=== PATIENT | female | born 1985 | race Caucasian/White ===

== ENCOUNTER 2019-03-17 19:09 | Inpatient (IN) | payer BC ==
[~2019-03-17] VITALS: Ht 154.4 cm; Wt 80.5 kg
--- OUTSIDE RECORDS SUMMARY | 2019-03-17 19:11 | XMS REPORT | Clinical Summary ---
Author Author [facility] Organization [facility] Address Unknown Phone Unavailable Care Team Providers Care Quality Liaison Name Role Phone Debra Coleman MD PCP Allergies Comments Active Allergy Reactions Severity Noted Date "Lockjaw and hives" Sulfa (Sulfonamide Other (See 03/10/2019 Antibiotics) Comments) Medications End Date Status Medication Sig Dispensed Refills Start Date 03/15/2019 HYDROcodone-acetaminophen Take 1 tablet 15 tablet 0 (NORCO) 10-325 mg per by mouth 9 tablet every 6 (six) hours as needed for moderate pain for up to 5 days. Max Daily Amount: 4 tablets Active Problems Not on file Encounters Care Team Description Date Type Specialty Surinder Snyder DO Acute cystitis with hematuria (Primary Dx); Drug-seeking behavior 03/10/2019 Emergency Emergency Medicine after 03/16/2018 Social History Date Tobacco Use Types Packs/Day Years Used Current Every Day Smoker Cigarettes 0.5 Alcohol Use Drinks/Week oz/Week Comments Yes socially Sex Assigned at Date Recorded Not on file Industry Job Start Date Occupation Not on file Not on file Not on file Travel End Travel History Travel Start No recent travel history available. Last Filed Vital Signs Time Taken Vital Sign Reading 03/10/2019 7:26 PM CDT Blood Pressure 137/70 03/10/2019 7:26 PM CDT Pulse 70 03/10/2019 7:26 PM CDT Temperature 36.6 C (97.9 F) 03/10/2019 7:26 PM CDT Respiratory Rate 20 03/10/2019 9:55 PM CDT Oxygen Saturation 97% - Inhaled Oxygen - Concentration 03/10/2019 7:27 PM CDT Weight 72.6 kg (160 lb) 03/10/2019 7:27 PM CDT Height 172.7 cm (5' 8") 03/10/2019 7:27 PM CDT Body Mass Index 24.33 Plan of Treatment Health Maintenance Due Date Last Done Comments INFLUENZA VACCINE 05/19/2019 Procedures Comments Procedure Name Priority Date/Time Associated Diagnosis CT ABDOMEN PELVIS W STAT 03/10/2019 CONTRAST 9:15 PM CDT GRAM STAIN STAT 03/10/2019 8:51 PM CDT URINE CULTURE STAT 03/10/2019 8:51 PM CDT URINALYSIS SCREEN AND STAT 03/10/2019 MICROSCOPY, WITH REFLEX 8:27 PM CDT TO CULTURE HCG QUALITATIVE, URINE STAT 03/10/2019 SCREEN 8:27 PM CDT ESTIMATED GFR STAT 03/10/2019 7:49 PM CDT BASIC METABOLIC PANEL STAT 03/10/2019 7:49 PM CDT HC COMPLETE BLD COUNT STAT 03/10/2019 W/AUTO DIFF 7:49 PM CDT after 03/16/2018 Results * CT Abdomen Pelvis W Contrast (03/10/2019 9:15 PM CDT) Specimen Narrative Performed At EXAMINATION:CT ABDOMEN PELVIS W CONTRAST [facility] CLINICAL HISTORY:right flank pain status post stent placement TECHNIQUE: Multiple axial images of the abdomen and pelvis were obtained following intravenous administration of iodinated contrast. Sagittal and coronal computerized reformatted images were also obtained. CT imaging was performed with iterative reconstruction technique and/or automated exposure control to reduce radiation dose. COMPARISON:03/14/2014 IMPRESSION: Mild bibasilar atelectasis/scarring. Patient is status post cholecystectomy. Liver, spleen, pancreas, adrenal glands are normal. A right internal double-J ureteral stent is identified. Bladder is decompressed. Mild wall thickening of bladder is seen, and correlation to exclude cystitis is advised. A 1.2 cm hypodensity in the interpolar region of the right kidney is indeterminate and would be better assessed with CT renal mass protocol or MRI abdomen with and without contrast on nonemergent basis. Left kidney and ureter are normal. Small fluid is seen in the pelvis. No free intraperitoneal air. Arising from right ovary, a 1.9 x 1.3 cm complex cystic structure is seen. This could represent hemorrhagic ovarian cyst and would be better assessed with pelvic ultrasound. Diverticulosis is seen without diverticulitis. The appendix is not seen. No gastrointestinal tract obstruction. No acute osseous abnormalities. Summary: Right internal double-J ureteral stent is identified, without hydronephrosis or hydroureter. A 1.2 cm hypodensity in the interpolar region of right kidney is indeterminate and would be better assessed with CT renal mass protocol or MRI abdomen with and without contrast on nonemergent basis. Bladder is decompressed. Mild wall thickening of the bladder is seen, which could just be secondary to incomplete distention. Correlation to exclude cystitis is advised. A 1.9 x 1.3 cm complex cystic structure arising from right ovary could represent a hemorrhagic ovarian cyst and would be better assessed with pelvic ultrasound. [facility]-[id number] Procedure Note [facility], Radiology Results Incoming - 03/10/2019 9:30 PM CDT EXAMINATION: CT ABDOMEN PELVIS W CONTRAST CLINICAL HISTORY: right flank pain status post stent placement TECHNIQUE: Multiple axial images of the abdomen and pelvis were obtained following intravenous administration of iodinated contrast. Sagittal and coronal computerized reformatted images were also obtained. CT imaging was performed with iterative reconstruction technique and/or automated exposure control to reduce radiation dose. COMPARISON: 03/14/2014 IMPRESSION: Mild bibasilar atelectasis/scarring. Patient is status post cholecystectomy. Liver, spleen, pancreas, adrenal glands are normal. A right internal double-J ureteral stent is identified. Bladder is decompressed. Mild wall thickening of bladder is seen, and correlation to exclude cystitis is advised. A 1.2 cm hypodensity in the interpolar region of the right kidney is indeterminate and would be better assessed with CT renal mass protocol or MRI abdomen with and without contrast on nonemergent basis. Left kidney and ureter are normal. Small fluid is seen in the pelvis. No free intraperitoneal air. Arising from right ovary, a 1.9 x 1.3 cm complex cystic structure is seen. This could represent hemorrhagic ovarian cyst and would be better assessed with pelvic ultrasound. Diverticulosis is seen without diverticulitis. The appendix is not seen. No gastrointestinal tract obstruction. No acute osseous abnormalities. Summary: Right internal double-J ureteral stent is identified, without hydronephrosis or hydroureter. A 1.2 cm hypodensity in the interpolar region of right kidney is indeterminate and would be better assessed with CT renal mass protocol or MRI abdomen with and without contrast on nonemergent basis. Bladder is decompressed. Mild wall thickening of the bladder is seen, which could just be secondary to incomplete distention. Correlation to exclude cystitis is advised. A 1.9 x 1.3 cm complex cystic structure arising from right ovary could represent a hemorrhagic ovarian cyst and would be better assessed with pelvic ultrasound. [facility]-[id number] Performing Organization Address City/[facility] [place] [address] * Gram stain (03/10/2019 8:51 PM CDT) Gram stain No WBC's [facility] result Occasional Gram negative rods Y[facility] Comment: HOSPITAL Specimen Information Specimen Source: Urine Specimen Site: Clean catch Specimen Urine Performing Organization Address [facility] Phone Number [facility] [place] [address] PATHOLOGY AND GENOMIC MEDICINE [address] * Urine culture (03/10/2019 8:51 PM CDT) Pathologist [facility] Urine culture No growth after 24 hours [facility] isolate Comment: [facility] Specimen Information HOSPITAL Specimen Source: Urine Specimen Site: Clean catch Specimen Urine Performing Organization Address [facility] Phone Number [facility] [place] [place] [address] PATHOLOGY AND GENOMIC MEDICINE [address] * Urinalysis screen and microscopy, with reflex to culture (03/10/2019 8:27 PM CDT) Specimen site Clean catch [facility] Color, UA RedComment: Corrected result; [facility] previously reported as Gwendolyn YAZIDISM ST. on 03/10/2019 at 20:51 by [facility] I/AUT Appearance, UA TurbidComment: Corrected [facility] result; previously reported as YAZIDISM ST. Clear on 03/10/2019 at 20:51 [facility] by I/AUT Specific 1.026 1.001 - 1.035 [facility] gravity, UA [facility] pH, UA 5.0 5.0 - 8.5 [facility] Protein, UA 3+ (A) Negative [facility] Glucose, UA Negative Negative [facility] Ketones, UA Negative Negative [facility] Bilirubin, UA Negative Negative [facility] Blood, UA Moderate (A) Negative [facility] Nitrite, UA Positive (A) Negative [facility] Urobilinogen, 4.0 (A) <2.0 [facility] Leukocyte Negative Negative [facility] esterase, UA [facility] Epithelial None seen /HPF [facility] cells, UA [facility] WBC, UA 0-5 0 - 4 /HPF [facility] RBC, UA 0-5 0 - 5 /HPF [facility] Bacteria, UA None seen None seen [facility] Yeast, UA None seen [facility] Yeast with None seen [facility] Specimen Urine Performing Organization Address [facility] Phone Number [address] [place] [address] PATHOLOGY AND GENOMIC MEDICINE [address] * hCG qualitative, urine screen (03/10/2019 8:27 PM CDT) Pathologist [facility] hCG Negative Negative [facility] qualitative, Comment: [facility] urine The manufacturers stated [facility] sensitivity of HcG test for serum is >/=10 mIU/ml and urine is >/=20mIU/ml. Specimen Urine Performing Organization Address [facility] Phone Number [address] [place] [address] PATHOLOGY AND GENOMIC MEDICINE [address] * Estimated GFR (03/10/2019 7:49 PM CDT) Pathologist [facility] Estimated GFR >=90 mL/min/1.73 m2 [facility] Comment: [facility] rpretation G1 >=90 Normal or high G2 60-89Mildly decreased [id number] Mildly to moderately decreased [id number] Moderately to severely decreased G4 15-29Severely decreased G5 <15Kidney failure The eGFR was calculated using the Chronic Kidney Disease Epidemiology Collaboration (CKD-EPI) equation. Interpretation is based on recommendations of the National Kidney Foundation-Kidney Disease Outcomes Quality Initiative (NKF-KDOQI) published in 2014. Specimen Plasma specimen Performing Organization Address City/[facility]/Zipcode Phone Number [facility] [address] [place] [address] PATHOLOGY AND GENOMIC MEDICINE [address] * CBC with platelet and differential (03/10/2019 7:49 PM CDT) WBC 12.45 (H) 4.50 - 11.00 k/uL [facility] RBC 4.85 4.20 - 5.50 m/uL [facility] HGB 14.7 12.0 - 16.0 g/dL [facility] HCT 44.5 37.0 - 47.0 % [facility] MCV 91.8 82.0 - 100.0 fL [facility] MCH 30.3 27.0 - 34.0 pg [facility] MCHC 33.0 31.0 - 37.0 g/dL [facility] RDW - SD 39.8 37.0 - 55.0 fL [facility] MPV 11.4 8.8 - 13.2 fL [facility] Platelet count 273 150 - 400 k/uL [facility] Nucleated RBC 0.00 /100 WBC [facility] Neutrophils 83.4 (H) 39.0 - 69.0 % [facility] Lymphocytes 12.1 (L) 25.0 - 45.0 % [facility] Monocytes 3.9 0.0 - 10.0 % [facility] Eosinophils 0.1 0.0 - 5.0 % [facility] Basophils 0.2 0.0 - 1.0 % [facility] Specimen Blood Performing Organization Address City/[facility]/Zipcode Phone Number [facility] [address] [place] [address] PATHOLOGY AND GENOMIC MEDICINE [address] * Basic metabolic panel (03/10/2019 7:49 PM CDT) Sodium 139 135 - 148 mEq/L [facility] Potassium 4.5 3.5 - 5.0 mEq/L [facility] Chloride 107 98 - 112 mEq/L [facility] CO2 21 (L) 24 - 31 mEq/L [facility] Anion gap 11@ANIO 7 - 15 mEq/L [facility] BUN 8 6 - 20 mg/dL [facility] Creatinine 0.70 0.50 - 0.90 mg/dL [facility] Glucose 123 (H) 65 - 99 mg/dL [facility] Calcium 9.7 8.3 - 10.2 mg/dL [facility] Specimen Plasma specimen Performing Organization Address City/State/Zipcode [place] [address] [place] [address] PATHOLOGY AND GENOMIC MEDICINE [facility] [id number] [place] [address] after 03/16/2018 Insurance Type Payer Benefit Subscriber ID Effective Phone Address Plan / Dates Group PPO BCBS BCBS xxxxxxxxxxxx [id number] CHOICE resent PPO/SOPHIA MATHEW PPO Advance Directives Patient has advance care planning documents on file. For more information, shania galicia contact: [facility] [address] [place] [address]
--- OUTSIDE RECORDS SUMMARY | 2019-03-17 19:12 | XMS REPORT ---
Author Author Manda Downs Organization [employer] Address Unknown Phone Unavailable Care Team Providers Care Orthopedically Impaired Teacher Name Role Phone Manda Downs CP Unavailable Encounters Encounter Location Date Disability paperwork [facility] Jul 23, 2015 Spells Of Passing Out [facility] Aug 02, 2015 Other [facility] Aug 02, 2015 referral [facility] Aug 09, 2015 Update Demographics - Additional Info [facility] Nov 10, 2014 RA Factor in blood test [facility] Nov 27, 2014 CLR F/U [facility] Jul 16, 2015 Test results [facility] Aug 30, 2015 Dr Perkins [facility] Nov 02, 2015 Dr Perkins Appointment [facility] Oct 29, 2015 EEG Sched. [facility] Aug 13, 2015 4 Week Follow Up [facility] Aug 22, 2015 Short Term Disability URGENT [facility] Oct 23, 2015 Deputy General Counsel Disability paperwork to be filled out [facility] Oct 18, 2015 Other [facility] Oct 16, 2015 Deputy General Counsel Disability [facility] Oct 22, 2015 fu/ surgery [facility] Nov 27, 2015 Tremmbling / Heart Racing [facility] Sep 26, 2015 Test results [facility] Jun 03, 2016 hosp fu/ clr [facility] Oct 16, 2015 Panic Attacks [facility] Sep 03, 2015 "Feeling Odd" [facility] Sep 25, 2015 FMLA Packet [facility] Oct 26, 2015 Problems Problem Type Condition ICD-9 Code Onset Dates Condition Status Problem Major depressive disorder, single episode, unspecified F32.9 Active Problem Abnormal finding of blood chemistry, unspecified R79.9 Active Problem Pain in unspecified joint M25.50 Active Problem Other cholelithiasis without obstruction K80.80 Active Problem Infectious gastroenteritis and colitis, unspecified A09 Active Problem Cellulitis, unspecified L03.90 Active Problem Diarrhea, unspecified R19.7 Active Problem Mild intermittent asthma, uncomplicated J45.20 Active Problem Melena K92.1 Active Problem Chills (without fever) R68.83 Active Problem Adjustment disorder with mixed anxiety and depressed mood F43.23 Active Problem Altered mental status, unspecified R41.82 Active Problem Chronic pain syndrome G89.4 Active Problem Encounter for general adult medical examination without abnormal findings Z00.00 Active Problem 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 Patient is a: former smoker, What age did you quit smoking? 29 May 27, 2016 Marital Status: . May 27, 2016 Caffeine intake? normal. Status: Yes, What type: Coffee, Tea, Soft Drinks, Chocolate May 27, 2016 exercise: no. May 27, 2016 Alchohol: no. May 27, 2016 Summary Purpose [employer] Submission
--- OUTSIDE RECORDS SUMMARY | 2019-03-17 19:12 | XMS REPORT ---
Author Author Manda Downs Organization [employer] Address Unknown Phone Unavailable Care Team Providers Care Freight Representative Name Role Phone Manda Downs CP Unavailable Allergies No Known Allergies Problems Problem Type Condition Code Onset Dates Condition Status Problem Encounter for general adult medical examination without abnormal findings Z00.00 Active Problem Abnormal finding of blood chemistry, unspecified R79.9 Active Problem Fall from, out of or through building, not otherwise specified, subsequent encounter W13.9XXD Active Problem Infectious gastroenteritis and colitis, unspecified A09 Active Problem Other cholelithiasis without obstruction K80.80 Active Problem Cellulitis, unspecified L03.90 Active Problem Chills (without fever) R68.83 Active Problem Mild intermittent asthma, uncomplicated J45.20 Active Problem Melena K92.1 Active Problem Diarrhea, unspecified R19.7 Active Problem Chronic pain syndrome G89.4 Active Problem 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
--- OUTSIDE RECORDS SUMMARY | 2019-03-17 19:12 | XMS REPORT | Continuity of Care Document ---
Author Author [facility] Interface Address Unknown Phone Unavailable Problems Problem Status Onset Date Classification Date Reported Comments Source Encounter for general adult medical examination without abnormal findings Active Problem 10/21/2018 [facility] Abnormal finding of blood chemistry, unspecified Active Problem 10/21/2018 [facility] Fall from, out of or through building, not otherwise specified, subsequent encounter Active Problem 10/21/2018 [facility] Infectious gastroenteritis and colitis, unspecified Active Problem 10/21/2018 [facility] Other cholelithiasis without obstruction Active Problem 10/21/2018 [facility] Cellulitis, unspecified Active Problem 10/21/2018 [facility] Chills Active Problem 10/21/2018 [facility] Mild intermittent asthma, uncomplicated Active Problem 10/21/2018 [facility] Melena Active Problem 10/21/2018 [facility] Diarrhea, unspecified Active Problem 10/21/2018 [facility] Chronic pain syndrome Active Problem 10/21/2018 [facility] Early-onset cerebellar ataxia Active Problem 10/21/2018 [facility] Pain in unspecified joint Active Problem 10/21/2018 [facility] Altered mental status, unspecified Active Problem 10/21/2018 [facility] Adjustment disorder with mixed anxiety and depressed mood Active Problem 10/21/2018 [facility] Fibromyalgia Active Problem 10/21/2018 [facility] Major depressive disorder, single episode, unspecified Active Problem 10/21/2018 [facility] Inflammatory polyarthropathy Active Problem 10/21/2018 [facility] Medications Medication Details Route Status Patient Instructions Ordering Provider Order Date Source Lomotil 1 tablet as needed Orally Active 2.5-0.025 MG Orally Four times a day [facility] 07/09/2017 [facility] Cipro 1 tablet Orally Active 500 MG Orally Twice a day [facility] 07/09/2017 [facility] Amoxicillin 1 tablet Orally Active 875 MG Orally twice a day (bid) [facility] 07/09/2017 [facility] Promethazine HCl 1 tablet as needed Orally Active 25 MG Orally every 12 hrs [facility] 07/09/2017 [facility] Ativan 1 tablet as needed Orally No Longer Active 0.5 MG Orally Twice a day [facility] 11/27/2015 [facility] Albuterol Sulfate HFA 2 puffs as needed Inhalation Active 108 (90 Base) MCG/ACT Inhalation every 4 hrs [facility] 08/22/2015 [facility] Albuterol Sulfate HFA 2 puffs as needed Inhalation Active 108 (90 Base) MCG/ACT Inhalation every 4 hrs [facility] 08/22/2015 [facility] Lyrica 1 capsule Orally Active 75 MG Orally Twice a day [facility] 05/18/2015 [facility] Lyrica 1 capsule Orally Active 75 MG Orally Twice a day [facility] 05/18/2015 [facility] [place] 1 tablet as needed Orally Active 10-325 MG Orally three times a day (tid) [facility] DiphenhydrAMINE HCl 1 capsule as needed Orally Active 25 MG Orally four times a day (qid) [facility] Bentyl 1 capsule Orally Active 10 MG Orally Four times a day [facility] Vitamin D3 not defined Orally Active 5000 UNIT Orally daily [facility] Zoloft 2 tablet Orally Active 100 mg Orally Once a day [facility] Abilify 1 tablet Orally Active 10 mg Orally Once a day [facility] Levaquin 1 tablet Orally Active 500 MG Orally Once a day [facility] Melatonin 2 tablets in the evening as needed with food Orally Active 10 mg Orally daily [facility] Citalopram Hydrobromide 2 tablets Orally Active 20 MG Orally Once a day [facility] Zolpidem Tartrate ER 1 tablet at bedtime as needed Orally Active 6.25 MG Orally Once a day [facility] Magnesium 2 tablets with a meal Orally Active 200 MG Orally Once a day [facility] Biotin 1 tablet Orally Active 1000 MCG Orally Once a day [facility] Wellbutrin XL 1 tablet in the morning Orally Active 300 MG Orally Once a day [facility] Trazodone HCl not defined Orally Active 300 MG Orally daily [facility] Gabapentin 1 capsule Orally Active 300 MG Orally daily [facility] Vitamin B Complex not defined Orally Active Orally [facility] Citalopram Hydrobromide 2 tablets Orally Active 20 MG Orally Once a day [facility] Trazodone HCl Unknown Orally Active 100 mg Orally daily [facility] [place] 1 tablet as needed Orally Active 7.5-325 MG Orally three times a day (tid) [facility] Zoloft 2 tablet Orally Active 100 mg Orally Once a day [facility] Magnesium 2 tablets with a meal Orally Active 200 MG Orally Once a day [facility] Biotin 1 tablet Orally Active 1000 MCG Orally Once a day [facility] Gabapentin 1 capsule Orally Active 300 MG Orally daily [facility] Vitamin B Complex Unknown Orally Active Orally [facility] Abilify 1 tablet Orally Active 10 mg Orally Once a day [facility] Vitamin D3 Unknown Orally Active 5000 UNIT Orally daily [facility] Levaquin 1 tablet Orally Active 500 MG Orally Once a day [facility] DiphenhydrAMINE HCl 1 capsule as needed Orally Active 25 MG Orally four times a day (qid) [facility] Zolpidem Tartrate ER 1 tablet at bedtime as needed Orally Active 6.25 MG Orally Once a day [facility] Bentyl 1 capsule Orally Active 10 MG Orally Four times a day [facility] Melatonin 2 tablets in the evening as needed with food Orally Active 10 mg Orally daily [facility] Allergies, Adverse Reactions, Alerts Substance Category Reaction Severity Reaction type Status Date Reported Comments Source Sulfa Adverse Reaction Info Not Available Adverse Reaction Active 07/09/2017 [facility] Immunizations Immunization Date Given Site Status Last Updated Comments Source Results Order Name Results Value Reference Range Date Interpretation Comments Source Vital Signs Vital Sign Value Date Comments Source Weight 195 07/09/2017 [facility] Systolic (mm Hg) 100 07/09/2017 [facility] Respitory Rate 16 07/09/2017 [facility] Heart Rate 74 07/09/2017 [facility] Temperature Oral (F) 98.3 F 07/09/2017 [facility] Diastolic (mm Hg) 60 07/09/2017 [facility] Weight 183 11/27/2015 [facility] Height 67 11/27/2015 [facility] Systolic (mm Hg) 108 11/27/2015 [facility] Respitory Rate 16 11/27/2015 [facility] Heart Rate 96 11/27/2015 [facility] Temperature Oral (F) 98.2 F 11/27/2015 [facility] Diastolic (mm Hg) 60 11/27/2015 [facility] Encounters Location Location Details Encounter Type Encounter Number Reason For Visit Attending Provider ADM Date DC Date Status Source [facility] Update Demographics - Additional Info [id number] 11/10/2014 11/10/2014 [facility] Update Demographics - Additional Info [id number] 11/10/2014 11/10/2014 [facility] Update Demographics - Additional Info [id number] 11/10/2014 11/10/2014 [facility] Update Demographics - Additional Info [id number] 11/10/2014 11/10/2014 [facility] RA Factor in blood test [id number] 11/27/2014 11/27/2014 [facility] RA Factor in blood test [id number] 11/27/2014 11/27/2014 [facility] RA Factor in blood test [id number] 11/27/2014 11/27/2014 [facility] RA Factor in blood test [id number] 11/27/2014 11/27/2014 [facility] CLR F/U [id number] 07/16/2015 07/16/2015 [facility] CLR F/U [id number] 07/16/2015 07/16/2015 [facility] CLR F/U [id number] 07/16/2015 07/16/2015 [facility] CLR F/U [id number] 07/16/2015 07/16/2015 [facility] Disability paperwork [id number] 07/23/2015 07/23/2015 [facility] Disability paperwork [id number] 07/23/2015 07/23/2015 [facility] Disability paperwork [id number] 07/23/2015 07/23/2015 [facility] Disability paperwork [id number] 07/23/2015 07/23/2015 [facility] Spells Of Passing Out [id number] 08/02/2015 08/02/2015 [facility] Spells Of Passing Out [id number] 08/02/2015 08/02/2015 [facility] Spells Of Passing Out [id number] 08/02/2015 08/02/2015 [facility] Spells Of Passing Out [id number] 08/02/2015 08/02/2015 [facility] Other [id number] 08/03/2015 08/03/2015 [facility] Other [id number] 08/03/2015 08/03/2015 [facility] Other [id number] 08/03/2015 08/03/2015 [facility] Other [id number] 08/03/2015 08/03/2015 [facility] referral [id number] 08/09/2015 08/09/2015 [facility] referral [id number] 08/09/2015 08/09/2015 [facility] referral [id number] 08/09/2015 08/09/2015 [facility] referral [id number] 08/09/2015 08/09/2015 [facility] EEG Sched. [id number] 08/13/2015 08/13/2015 [facility] EEG Sched. [id number] 08/13/2015 08/13/2015 [facility] EEG Sched. [id number] 08/13/2015 08/13/2015 [facility] EEG Sched. [id number] 08/13/2015 08/13/2015 [facility] 4 Week Follow Up [id number] 08/22/2015 08/22/2015 [facility] 4 Week Follow Up [id number] 08/22/2015 08/22/2015 [facility] 4 Week Follow Up [id number] 08/22/2015 08/22/2015 [facility] 4 Week Follow Up [id number] 08/22/2015 08/22/2015 [facility] Test results [id number] 08/31/2015 08/31/2015 [facility] Test results [id number] 08/31/2015 08/31/2015 [facility] Test results [id number] 08/31/2015 08/31/2015 [facility] Test results [id number] 08/31/2015 08/31/2015 [facility] Panic Attacks [id number] 09/03/2015 09/03/2015 [facility] Panic Attacks [id number] 09/03/2015 09/03/2015 [facility] Panic Attacks [id number] 09/03/2015 09/03/2015 [facility] Panic Attacks [id number] 09/03/2015 09/03/2015 [facility] "Feeling Odd" [id number] 09/25/2015 09/25/2015 [facility] "Feeling Odd" [id number] 09/25/2015 09/25/2015 [facility] "Feeling Odd" [id number] 09/25/2015 09/25/2015 [facility] "Feeling Odd" [id number] 09/25/2015 09/25/2015 [facility] Tremmbling / Heart Racing [id number] 09/26/2015 09/26/2015 [facility] Tremmbling / Heart [employer] [id number] 09/26/2015 09/26/2015 [facility] Tremmbling / Heart [employer] [id number] 09/26/2015 09/26/2015 [facility] Tremmbling / Heart Racing [id number] 09/26/2015 09/26/2015 [facility] hosp fu/ clr [id number] 10/16/2015 10/16/2015 [facility] fu/ clr [id number] 10/16/2015 10/16/2015 [facility] fu/ clr [id number] 10/16/2015 10/16/2015 [facility] fu/ clr [id number] 10/16/2015 10/16/2015 [facility] Other [id number] 10/17/2015 10/17/2015 [facility] Other [id number] 10/17/2015 10/17/2015 [facility] Other [id number] 10/17/2015 10/17/2015 [facility] Other [id number] 10/17/2015 10/17/2015 [facility] Disability paperwork to be filled out [id number] 10/18/2015 10/18/2015 [facility] Foreign [employer] Student Coordinator Disability paperwork to be filled out [id number] 10/18/2015 10/18/2015 [facility] [employer] Student Coordinator Disability paperwork to be filled out [id number] 10/18/2015 10/18/2015 [facility] Disability paperwork to be filled out [id number] 10/18/2015 10/18/2015 [facility] Disability [id number] 10/22/2015 10/22/2015 [facility] Disability [id number] 10/22/2015 10/22/2015 [facility] Disability [id number] 10/22/2015 10/22/2015 [facility] [employer] Exchange Student Coordinator Disability [id number] 10/22/2015 10/22/2015 [facility] Short Term Disability URGENT [id number] 10/23/2015 10/23/2015 [facility] Short Term Disability URGENT [id number] 10/23/2015 10/23/2015 [facility] Short Term Disability URGENT [id number] 10/23/2015 10/23/2015 [facility] Short Term Disability URGENT [id number] 10/23/2015 10/23/2015 [facility] FMLA Packet [id number] 10/26/2015 10/26/2015 [facility] FML[facility] Packet [id number] 10/26/2015 10/26/2015 [facility] F[facility] Packet [id number] 10/26/2015 10/26/2015 [facility] [employer] Packet [id number] 10/26/2015 10/26/2015 [facility] Appointment [id number] 10/29/2015 10/29/2015 [facility] Appointment [id number] 10/29/2015 10/29/2015 [facility] Appointment [id number] 10/29/2015 10/29/2015 [facility] Appointment [id number] 10/29/2015 10/29/2015 [facility] [id number] 11/02/2015 11/02/2015 [facility] [id number] 11/02/2015 11/02/2015 [facility] [id number] 11/02/2015 11/02/2015 [facility] [id number] 11/02/2015 11/02/2015 [facility] fu/ surgery [id number] 11/27/2015 11/27/2015 [facility] fu/ surgery [id number] 11/27/2015 11/27/2015 [facility] fu/ surgery [id number] 11/27/2015 11/27/2015 [facility] Test results [id number] 06/03/2016 06/03/2016 [facility] Test results [id number] 06/03/2016 06/03/2016 [facility] N/S to 06/10 appt. [id number] 06/10/2016 06/10/2016 [facility] Procedures Procedure Code Date Perfomer Comments Source
--- OUTSIDE RECORDS SUMMARY | 2019-03-17 19:12 | XMS REPORT ---
Author Author Manda Downs Organization [employer] Address Unknown Phone Unavailable Care Team Providers Care Patternmaker Metal Bench Name Role Phone Manda Downs CP Unavailable Allergies, Adverse Reactions, Alerts Substance Reaction Event Type Sulfa Info Not Available Drug Allergy Encounters Encounter Location Date Disability paperwork [facility] Jul 23, 2015 Spells Of Passing Out [facility] Aug 02, 2015 Other [facility] Aug 02, 2015 referral [facility] Aug 09, 2015 Update Demographics - Additional Info [facility] Nov 10, 2014 RA Factor in blood test [facility] Nov 27, 2014 CLR F/U [facility] Jul 16, 2015 Test results [facility] Aug 30, 2015 Dr Perkins [facility] Nov 02, 2015 Dr Perkins Appointment [facility] Oct 29, 2015 EEG Sched. 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 [facility] Oct 18, 2015 Other [facility] Oct 16, 2015 Longterm Disability [facility] Oct 22, 2015 fu/ surgery [facility] Nov 27, 2015 Tremmbling / Heart Racing [facility] Sep 26, 2015 hosp fu/ clr [facility] Oct 16, 2015 Panic Attacks [facility] Sep 03, 2015 "Feeling Odd" [facility] Sep 25, 2015 FMLA Packet [facility] Oct 26, 2015 Problems Problem Type Condition ICD-9 Code Onset Dates Condition Status Problem Inflammatory polyarthropathy M06.4 Active Problem Pain in unspecified joint M25.50 Active Problem Major depressive disorder, single episode, unspecified F32.9 Active Problem Infectious gastroenteritis and colitis, unspecified A09 Active Problem Melena K92.1 Active Problem Other cholelithiasis without obstruction K80.80 Active Problem Mild intermittent asthma, uncomplicated J45.20 Active Problem Abnormal finding of blood chemistry, unspecified R79.9 Active Problem Chills (without fever) R68.83 Active Problem Diarrhea, unspecified R19.7 Active Assessment Fibromyalgia M79.7 Active Problem Adjustment disorder with mixed anxiety and depressed mood F43.23 Active Assessment Adjustment disorder with mixed anxiety and depressed mood F43.23 Active Assessment Chronic pain syndrome G89.4 Active Problem Fall from, out of or through building, not otherwise specified, subsequent encounter W13.9XXD Active Problem Chronic pain syndrome G89.4 Active Problem Altered mental status, unspecified R41.82 Active Problem Encounter for general adult medical examination without abnormal findings Z00.00 Active Problem Early-onset cerebellar ataxia G11.1 Active Problem Fibromyalgia M79.7 Active Medications Medication Code System Code Instructions Start Date End Date Status Dosage Citalopram Hydrobromide [facility] [address]-45 20 MG Orally Once a day Active 2 tablets Trazodone HCl [facility] [address]-25 100 mg Orally daily Active Unknown Langeloth [facility] [address]-20 7.5-325 MG Orally three times a day (tid) Active 1 tablet as needed Zoloft [facility] [address]-96 100 mg Orally Once a day Active 2 tablet Magnesium [facility] 95199-21139 200 MG Orally Once a day Active 2 tablets with a meal Biotin [facility] 30612-[address]127 1000 MCG Orally Once a day Active 1 tablet Lyrica [facility] [address]-89 75 MG Orally Twice a day May 18, 2015 Active 1 capsule Gabapentin [facility] [address]-08 300 MG Orally daily Active 1 capsule Vitamin B Complex [facility] 47418-[address]292 Orally Active Unknown Abilify [facility] [address]-91 10 mg Orally Once a day Active 1 tablet Ativan [facility] [address]-91 0.5 MG Orally Twice a day Nov 27, 2015 Inactive 1 tablet as needed Vitamin D3 [facility] [address]-27 5000 UNIT Orally daily Active Unknown Levaquin [facility] [address]-86 500 MG Orally Once a day Active 1 tablet DiphenhydrAMINE HCl [facility] [address]-57 25 MG Orally four times a day (qid) Active 1 capsule as needed Albuterol Sulfate HFA [facility] [address]-02 108 (90 Base) MCG/ACT Inhalation every 4 hrs Aug 22, 2015 Active 2 puffs as needed Zolpidem Tartrate ER [facility] [address]-51 6.25 MG Orally Once a day Active 1 tablet at bedtime as needed Bentyl [facility] [address]-67 10 MG Orally Four times a day Active 1 capsule Melatonin [facility] 80218-78866 10 mg Orally daily Active 2 tablets in the evening as needed with food Social History Social History Element Qualifiers Date Reported Tobacco Use: . Patient is a: former smoker, What age did you quit smoking? 29 Nov 27, 2015 Marital Status: . Nov 27, 2015 Caffeine intake? normal. Status: Yes, What type: Coffee, Tea, Soft Drinks, Chocolate Nov 27, 2015 exercise: no. Nov 27, 2015 Alchohol: no. Nov 27, 2015 Family history Qualifier Description Comment Date Reported Maternal Grandmother Comment not available Nov 27, 2015 Paternal Grandmother Comment not available Nov 27, 2015 Siblings Comment not available Nov 27, 2015 Maternal Grandfather Comment not available Nov 27, 2015 Children Comment not available Nov 27, 2015 Father alive Comment not available Nov 27, 2015 Paternal Grandfather Comment not available Nov 27, 2015 Mother alive Comment not available Nov 27, 2015 Other: Comment not available Nov 27, 2015 Vital Signs Date/Time: Nov 27, 2015 Weight 183 lbs Height 67 in Blood Pressure Systolic 108 mm Hg Respiratory Rate 16 /min Cardiac Monitoring Heart Rate 96 /min Temperature 98.2 F Blood Pressure Diastolic 60 mm Hg Summary Purpose [employer]Works Submission
--- OUTSIDE RECORDS SUMMARY | 2019-03-17 19:12 | XMS REPORT ---
Author Author Manda Downs Organization [employer] Address Unknown Phone Unavailable Care Team Providers Care Train Crew Member Name Role Phone Manda Downs CP Unavailable [...]
--- OUTSIDE RECORDS SUMMARY | 2019-03-17 19:12 | XMS REPORT ---
Author Author Manda Downs Organization [employer] Address Unknown Phone Unavailable Care Team Providers Care Automotive Welder Name Role Phone Manda Downs CP Unavailable [...]
--- OUTSIDE RECORDS SUMMARY | 2019-03-17 19:12 | XMS REPORT ---
Author Author [facility] Address Unknown Phone Unavailable Care Team Providers Care Gasket Former Name Role Phone Unavailable Unavailable Payers Payer Name Policy Type Policy Number Effective Date Expiration Date Problems This patient has no known problems. Allergies, Adverse Reactions, Alerts Allergy Name Allergy Type Status Severity Reaction(s) Onset Date Inactive Date Treating Clinician Comments Sulfa (Sulfonamide Antibiotics) DA Active U 2018-07-22 00:00:00 No Known Allergies DA Active U 2017-08-05 00:00:00 Medications This patient has no known medications.
--- OUTSIDE RECORDS SUMMARY | 2019-03-17 19:12 | XMS REPORT ---
Author Author Manda Downs Organization [employer] Address Unknown Phone Unavailable Care Team Providers Care Assistant Boiler Operator Name Role Phone Manda Downs CP Unavailable Encounters Encounter Location Date Disability paperwork [facility] Jul 23, 2015 Spells Of Passing Out [facility] Aug 02, 2015 Other [facility] Aug 02, 2015 referral [facility] Aug 09, 2015 Update Demographics - Additional Info [facility] Nov 10, 2014 RA Factor in blood test [facility] Nov 27, 2014 CLR F/U [facility] Jul 16, 2015 Test results [facility] Aug 30, 2015 Dr Perkins [facility] Nov 02, 2015 Dr Perkins Appointment [facility] Oct 29, 2015 EEG Sched. 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 Disability [facility] Oct 22, 2015 Tremmbling / Heart Racing [facility] Sep 26, 2015 hosp fu/ clr [facility] Oct 16, 2015 Panic Attacks [facility] Sep 03, 2015 "Feeling Odd" [facility] Sep 25, 2015 FMLA Packet [facility] Oct 26, 2015 Problems Problem Type [...] R68.83 Active Problem Diarrhea, unspecified R19.7 Active Problem Adjustment disorder with mixed anxiety and depressed mood F43.23 Active Problem Fall from, out of or through building, not otherwise specified, subsequent encounter W13.9XXD Active Problem Chronic pain syndrome G89.4 Active Problem Altered mental status, unspecified R41.82 Active Problem Encounter for general adult medical examination without abnormal findings Z00.00 Active Problem Early-onset cerebellar ataxia G11.1 Active Problem Fibromyalgia M79.7 Active Social History Social History Element Qualifiers Date Reported Tobacco Use: . Patient is a: former smoker, What age did you quit smoking? Oct 18, 2015 Marital Status: . Oct 18, 2015 Caffeine intake? normal. Status: Yes, What type: Coffee, Tea, Soft Drinks, Chocolate Oct 18, 2015 exercise: no. Oct 18, 2015 Alchohol: no. Oct 18, 2015 Summary Purpose [employer]Clinical[employer] Submission
--- OUTSIDE RECORDS SUMMARY | 2019-03-17 19:12 | XMS REPORT ---
Author Author Manda Downs Organization [employer] Address Unknown Phone Unavailable Care Team Providers Care Marriage Performer Name Role Phone Manda Downs CP Unavailable [...] Active Problem Early-onset cerebellar ataxia G11.1 Active Assessment Infectious gastroenteritis and colitis, unspecified A09 Active Problem Pain in unspecified joint M25.50 Active Problem Altered mental status, unspecified R41.82 Active Problem Adjustment disorder with mixed anxiety and depressed mood F43.23 Active Problem Fibromyalgia M79.7 Active Problem Major depressive disorder, single episode, unspecified F32.9 Active Problem Inflammatory polyarthropathy M06.4 Active Medications Medication Code System Code Instructions Start Date End Date Status Dosage Lomotil [facility] 02530273942 2.5-0.025 MG Orally Four times a day Jul 09, 2017 Jul 20, 2017 Active 1 tablet as needed Results No Known Results Summary Purpose eClinicalWorks Submission
--- OUTSIDE RECORDS SUMMARY | 2019-03-17 19:12 | XMS REPORT ---
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 Assessment Mild intermittent asthma, uncomplicated J45.20 Active Assessment Infectious gastroenteritis and colitis, unspecified [...] Instructions Start Date End Date Status Dosage [place] [facility] 26750919712 10-325 MG Orally three times a day (tid) Active 1 tablet as needed Albuterol Sulfate HFA [facility] 45090857424 108 (90 Base) MCG/ACT Inhalation every 4 hrs Aug 22, 2015 Active 2 puffs as needed Cipro [facility] 81413353188 500 MG Orally Twice a day Jul 09, 2017 Jul 19, 2017 Active 1 tablet Amoxicillin [facility] 06428879920 875 MG Orally twice a day (bid) Jul 09, 2017 Inactive 1 tablet DiphenhydrAMINE HCl [facility] 18025355153 25 MG Orally four times a day (qid) Active 1 capsule as needed Bentyl [facility] 07129673141 10 MG Orally Four times a day Active 1 capsule Vitamin D3 ND 49960163246 5000 UNIT Orally daily Active not defined Zoloft [facility] 14391460654 100 mg Orally Once a day Active 2 tablet Abilify [facility] 86767065987 10 mg Orally Once a day Active 1 tablet Levaquin ND 39628560168 500 MG Orally Once a day Active 1 tablet Melatonin [facility] 59687254890 10 mg Orally daily Active 2 tablets in the evening as needed with food Citalopram Hydrobromide [facility] 68990191363 20 MG Orally Once a day Active 2 tablets Zolpidem Tartrate ER ND 04957559273 6.25 MG Orally Once a day Active 1 tablet at bedtime as needed Magnesium [facility] 35824751821 200 MG Orally Once a day Active 2 tablets with a meal Biotin [facility] 81001605848 1000 MCG Orally Once a day Active 1 tablet Wellbutrin XL [facility] 91516227658 300 MG Orally Once a day Active 1 tablet in the morning Trazodone HCl [facility] 83599397406 300 MG Orally daily Active not defined Gabapentin [facility] 85412854628 300 MG Orally daily Active 1 capsule Lyrica [facility] 26511189828 75 MG Orally Twice a day May 18, 2015 Active 1 capsule Lomotil [facility] 84043788267 2.5-0.025 MG Orally Four times a day Jul 09, 2017 Jul 16, 2017 Active 1 tablet as needed Promethazine HCl [facility] 15961975541 25 MG Orally every 12 hrs Jul 09, 2017 Jul 19, 2017 Active 1 tablet as needed Vitamin B Complex [facility] 43384523707 Orally Active not defined Vital Signs Date/Time: Jul 09, 2017 BMI 30.54 Index Weight 195 lbs Blood Pressure Systolic 100 mm Hg Respiratory Rate 16 /min Cardiac Monitoring Heart Rate 74 /min Temperature 98.3 F Blood Pressure Diastolic 60 mm Hg Results No Known Results Summary Purpose [employer]ClinicalWorks Submission
--- OUTSIDE RECORDS SUMMARY | 2019-03-17 19:12 | XMS REPORT ---
Author Author Manda Downs Organization [employer] Address Unknown Phone Unavailable Care Team Providers Care Cancer Registrar Name Role Phone Manda Downs CP Unavailable Encounters Encounter Location Date Disability paperwork [facility] Jul 23, 2015 Spells Of Passing Out [facility] Aug 02, 2015 Other [facility] Aug 02, 2015 referral [facility] Aug 09, 2015 Update Demographics - Additional Info [facility] Nov 10, 2014 RA Factor in blood test [facility] Nov 27, 2014 CLR F/U [facility] Jul 16, 2015 Test results [facility] Aug 30, 2015 Dr Perkins [facility] Nov 02, 2015 Dr Perkins Appointment [facility] Oct 29, 2015 EEG Sched. 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 [facility] Jun 10, 2016 Panic Attacks [facility] Sep 03, 2015 "Feeling Odd" [facility] Sep 25, 2015 FMLA Packet [facility] Oct 26, 2015 Problems Problem Type [...] smoker, What age did you quit smoking? May 27, 2016 Marital Status: . May 27, 2016 Caffeine intake? normal. Status: Yes, What type: Coffee, Tea, Soft Drinks, Chocolate May 27, 2016 exercise: no. May 27, 2016 Alchohol: no. May 27, 2016 Summary Purpose eClinicalWorks Submission
--- OUTSIDE RECORDS SUMMARY | 2019-03-17 19:12 | XMS REPORT ---
Author Author Manda Downs Organization [employer] Address Unknown Phone Unavailable Care Team Providers Care Mri Specialist Name Role Phone Manda Downs CP Unavailable [...]
[2019-03-17] MEDS ORDERED: ONDANSETRON HCL INJ 2MG/ML 2ML 2 MG/ML VIAL IV ONE (20:02)
[2019-03-17] MEDS ORDERED: HYDROMORPHONE 1MG/1ML INJ IV STA (20:02)
[2019-03-17] MEDS ORDERED: SODIUM CHLORIDE 0.9% 1000ML 1,000 ML IV STA (20:02)
[2019-03-17] MEDS ORDERED: MEROPENEM 1GRAM 1 GM in SODIUM CHLORIDE 0.9% 100 ML 100 ML IV STA (20:02)
[2019-03-17] MEDS ORDERED: MEROPENEM 1GM 100 ML IV ONE ×2 (20:15→22:30)
[2019-03-17] MEDS ORDERED: HYDROMORPHONE 2MG/ML 2 MG/ML ML IV ONE (20:15)
[2019-03-17 20:51] LABS: BASOPHILS # (AUTO) 0.1 (0.0-0.1); BASOPHILS % 0.5 % (0.0-1.0); EOSINOPHILS # (AUTO) 0.5 (0.0-0.4); EOSINOPHILS % 3.6 % (0.0-6.0); HEMATOCRIT 48.4 % (34.2-44.1); HEMOGLOBIN 16.6 g/dL (12.0-16.0); LYMPHOCYTES # (AUTO) 5.3 (1.0-3.2); LYMPHOCYTES % 37.9 % (18.0-39.1); MEAN CORPUSCULAR HEMOGLOBIN 30.9 pg (28-32); MEAN CORPUSCULAR HGB CONC 34.3 g/dL (31-35); MONOCYTES # (AUTO) 0.9 (0.2-0.8); MONOCYTES % 6.2 % (4.4-11.3); NEUTROPHILS # (AUTO) 7.2 (2.1-6.9); NEUTROPHILS % 51.4 % (38.7-80.0); PLATELET COUNT 261 x10e3/uL (140-360); RED BLOOD COUNT 5.38 x10e6/uL (3.6-5.1); RED CELL DISTRIBUTION WIDTH 12.4 % (11.7-14.4)
[2019-03-17 20:53] LABS: BILIRUBIN,URINE NEGATIVE (NEGATIVE); CLARITY,URINE SL CLOUDY (CLEAR); COLOR,URINE YELLOW (YELLOW); KETONES,URINE NEGATIVE (NEGATIVE); LEUKOCYTE ESTERASE ,URINE TRACE (NEGATIVE); NITRITE,URINE NEGATIVE (NEGATIVE); PROTEIN,URINE DIPSTICK 1+ (NEGATIVE); URINE UROBILINOGEN 0.2 mg/dL (0.2 - 1)
[2019-03-17 21:06] LABS: BACTERIA,URINE MANY /HPF; EPITHELIAL CELLS,URINE MODERATE /LPF; RBC,URINE 21-50 /HPF (0-5)
[2019-03-17 21:07] LABS: AMORPHOUS SEDIMENT,URINE MODERATE (FEW)
[2019-03-17 21:09] LABS: ANION GAP 14.6 mmol/L (8-16); BLOOD UREA NITROGEN 11 mg/dL (7-26); BUN/CREATININE RATIO 14 (6-25); CALCIUM 10.8 mg/dL (8.4-10.2); CARBON DIOXIDE 21 mmol/L (22-29); CHLORIDE 102 mmol/L (98-107); CREATININE, SERUM 0.77 mg/dL (0.57-1.11); EST GLOMERULAR FILTRATION RATE > 60 ML/MIN (60-); GLUCOSE 73 mg/dL (74-118); POTASSIUM 4.6 mmol/L (3.5-5.1); SODIUM 133 mmol/L (136-145)
--- NOTE | 2019-03-17 21:27 | Diagnostic Imaging Report ---
Abdomen/KUB INDICATION: Stent placed one week ago, right-sided pain ^EVALUATE STENT ^[id number] ^2027 ^Y COMPARISON: None. FINDINGS: Medical Devices: Right ureteral stent has formed loops proximally and distally. Proximal loop is at the medial aspect of the right renal shadow. No calculus along the course of the stent. Cholecystectomy clips in the right upper quadrant. Bowel: Unremarkable bowel gas pattern. No dilated bowel loops. Moderate amount of stool in the right colon and rectum. Free air: None Calcifications: None over the renal shadows or along the expected course of the ureters. Organomegaly: None Bones: Unremarkable IMPRESSION: Right ureteral stent appears to be in appropriate position. No evidence of renal or ureteral calculus. Unremarkable bowel gas pattern. Moderate burden of stool in the colon as described above. Signed by: Dr. Amalia Medrano MD on 03/17/2019 9:24 PM
[2019-03-17] MEDS ORDERED: KETOROLAC TROMETHAMINE 30 MG/ML VIAL IV ONE (21:31)
[2019-03-17] MEDS ORDERED: HYDROMORPHONE 1MG/1ML INJ IV PRN (22:15)
[2019-03-17] MEDS ORDERED: ONDANSETRON HCL INJ 2MG/ML 2ML 2 MG/ML VIAL IV PRN (22:15)
--- OUTSIDE RECORDS SUMMARY | 2019-03-17 22:31 | XMS REPORT | Clinical Summary ---
Author Author [facility] Organization [facility] Address Unknown Phone Unavailable Care Team Providers Care Director Of Vital Statistics Name Role Phone Debra Coleman MD PCP [...] would be better assessed with pelvic ultrasound. [id number] Procedure Note [facility], Radiology Results Incoming - 03/10/2019 9:30 PM [...] would be better assessed with pelvic ultrasound. [id number] Performing Organization Address [facility] [place] [address] * Gram stain (03/10/2019 8:51 PM CDT) Gram stain No WBC's [facility] result Occasional Gram negative rods [facility] Comment: HOSPITAL Specimen Information Specimen Source: Urine Specimen Site: Clean catch Specimen Urine Performing Organization Address [facility] Phone Number [facility] [address] PATHOLOGY AND GENOMIC MEDICINE [address] * Urine culture (03/10/2019 8:51 PM CDT) Pathologist [facility] Urine culture No growth after 24 hours [facility] isolate Comment: [facility] Specimen Information HOSPITAL Specimen Source: Urine Specimen Site: Clean catch Specimen Urine Performing Organization Address [facility] Phone Number [facility] [address] PATHOLOGY AND GENOMIC MEDICINE [address] * Urinalysis screen and microscopy, with reflex to culture (03/10/2019 8:27 PM CDT) Specimen site Clean catch [facility] Color, UA RedComment: Corrected result; [facility] previously reported as Gwendolyn HOAHAOISM ST. on 03/10/2019 at 20:51 by [facility] I/AUT Appearance, UA TurbidComment: Corrected [facility] result; previously reported as HOAHAOISM ST. Clear on 03/10/2019 at 20:51 [facility] by I/AUT Specific 1.026 1.001 - 1.035 [facility] gravity, UA [facility] pH, UA 5.0 5.0 - 8.5 [facility] Protein, UA 3+ (A) Negative [facility] Glucose, UA Negative Negative [facility] Ketones, UA Negative Negative [facility] Bilirubin, UA Negative Negative [facility] Blood, UA Moderate (A) Negative [facility] Nitrite, UA Positive (A) Negative [facility] Urobilinogen, 4.0 (A) <2.0 [facility] Leukocyte Negative Negative [facility] esterase, UA [facility] Epithelial None seen /HPF [facility] cells, UA [facility] WBC, UA 0-5 0 - 4 /HPF [facility] RBC, UA 0-5 0 - 5 /HPF [facility] Bacteria, UA None seen None seen [facility] Yeast, UA None seen [facility] Yeast with None seen [facility] Specimen Urine Performing Organization Address [facility] Phone Number [address] [place] [address] PATHOLOGY AND GENOMIC MEDICINE [address] * hCG qualitative, urine screen (03/10/2019 8:27 PM CDT) Pathologist [facility] hCG Negative Negative [facility] qualitative, Comment: [facility] urine The manufacturers stated [facility] sensitivity of HcG test for serum is >/=10 mIU/ml and urine is >/=20mIU/ml. Specimen Urine Performing Organization Address [facility] Phone Number [address] [place] [address] PATHOLOGY AND GENOMIC MEDICINE [address] * Estimated GFR (03/10/2019 7:49 PM CDT) Pathologist [facility] Estimated GFR >=90 mL/min/1.73 m2 [facility] Comment: [facility] rpretation G1 >=90 Normal or high G2 60-89Mildly decreased K0q45-90 Mildly to moderately decreased B2y36-16 Moderately to severely decreased G4 15-29Severely decreased G5 <15Kidney failure The eGFR was calculated using the Chronic Kidney Disease Epidemiology Collaboration (CKD-EPI) equation. Interpretation is based on recommendations of the National Kidney Foundation-Kidney Disease Outcomes Quality Initiative (NKF-KDOQI) published in 2014. Specimen Plasma specimen Performing Organization Address City/[facility]/Zipcode Phone Number [facility] [address] [place] [address] PATHOLOGY AND GENOMIC MEDICINE [address] * CBC with platelet and differential (03/10/2019 7:49 PM CDT) WBC 12.45 (H) 4.50 - 11.00 k/uL [facility] RBC 4.85 4.20 - 5.50 m/uL [facility] HGB 14.7 12.0 - 16.0 g/dL [facility] HCT 44.5 37.0 - 47.0 % [facility] MCV 91.8 82.0 - 100.0 fL [facility] MCH 30.3 27.0 - 34.0 pg [facility] MCHC 33.0 31.0 - 37.0 g/dL [facility] RDW - SD 39.8 37.0 - 55.0 fL [facility] MPV 11.4 8.8 - 13.2 fL [facility] Platelet count 273 150 - 400 k/uL [facility] Nucleated RBC 0.00 /100 WBC [facility] Neutrophils 83.4 (H) 39.0 - 69.0 % [facility] Lymphocytes 12.1 (L) 25.0 - 45.0 % [facility] Monocytes 3.9 0.0 - 10.0 % [facility] Eosinophils 0.1 0.0 - 5.0 % [facility] Basophils 0.2 0.0 - 1.0 % [facility] Specimen Blood Performing Organization Address City/[facility]/Zipcode Phone Number [facility] [address] [place] [address] PATHOLOGY AND GENOMIC MEDICINE [address] * Basic metabolic panel (03/10/2019 7:49 PM CDT) Sodium 139 135 - 148 mEq/L [facility] Potassium 4.5 3.5 - 5.0 mEq/L [facility] Chloride 107 98 - 112 mEq/L [facility] CO2 21 (L) 24 - 31 mEq/L [facility] Anion gap 11@ANIO 7 - 15 mEq/L [facility] BUN 8 6 - 20 mg/dL [facility] Creatinine 0.70 0.50 - 0.90 mg/dL [facility] Glucose 123 (H) 65 - 99 mg/dL [facility] Calcium 9.7 8.3 - 10.2 mg/dL [facility] Specimen Plasma specimen Performing Organization Address City/State/Zipcode [place] [address] [place] [address] PATHOLOGY AND GENOMIC MEDICINE [facility] [id number] [place] [address] after 03/16/2018 Insurance Type Payer Benefit Subscriber ID Effective Phone Address Plan / Dates Group PPO BCBS BCBS xxxxxxxxxxxx [id number] CHOICE resent PPO/SOPHIA MATHEW PPO Advance Directives Patient has advance care planning documents on file. For more information, shania galicia contact: [facility] [address] [place] [address]
[2019-03-17] MEDS: SODIUM CHLORIDE 0.9% 1000ML 1,000 ML IV SCH (22:38)
[2019-03-17 22:50] VITALS: BP 122/83
[2019-03-17 23:15] VITALS: BP 122/83
--- NOTE | 2019-03-17 23:20 | NUR ---
Patient received via wheel chair from ER accompanied by . AAO x 4. Admission history and Initial physical assessment conducted. Patient had no complaints of pain, nausea or discomfort. Patient oriented to room, call light and plan of care. IVF infusing at 125 cc /hr. Fall precautions implemented. Patient instructed to call for assistance when needed. Call light within reach.
[2019-03-17 23:30] VITALS: BP 122/83
[2019-03-18] VITALS (8 sets, daily range): BP systolic 86–114; BP diastolic 54–75
[2019-03-18] MEDS: HYDROMORPHONE 2MG/ML 2 MG/ML ML IV PRN ×5 (00:21→19:59)
[2019-03-18] MEDS: ACETAMINOPHEN 325 MG TAB PO PRN (05:00)
[2019-03-18 05:06] LABS: BASOPHILS # (AUTO) 0.1 (0.0-0.1); BASOPHILS % 0.6 % (0.0-1.0); EOSINOPHILS # (AUTO) 0.5 (0.0-0.4); EOSINOPHILS % 5.4 % (0.0-6.0); HEMOGLOBIN 13.2 g/dL (12.0-16.0); LYMPHOCYTES # (AUTO) 3.8 (1.0-3.2); LYMPHOCYTES % 45.2 % (18.0-39.1); MEAN CORPUSCULAR HEMOGLOBIN 30.4 pg (28-32); MEAN CORPUSCULAR VOLUME 92.2 fL (81-99); MONOCYTES # (AUTO) 0.6 (0.2-0.8); MONOCYTES % 6.8 % (4.4-11.3); NEUTROPHILS # (AUTO) 3.5 (2.1-6.9); NEUTROPHILS % 41.8 % (38.7-80.0); PLATELET COUNT 204 x10e3/uL (140-360); RED BLOOD COUNT 4.34 x10e6/uL (3.6-5.1); RED CELL DISTRIBUTION WIDTH 12.3 % (11.7-14.4)
[2019-03-18 05:30] LABS: ANION GAP 9.4 mmol/L (8-16); BLOOD UREA NITROGEN 14 mg/dL (7-26); BUN/CREATININE RATIO 18 (6-25); CALCIUM 8.5 mg/dL (8.4-10.2); CARBON DIOXIDE 23 mmol/L (22-29); CHLORIDE 108 mmol/L (98-107); CREATININE, SERUM 0.76 mg/dL (0.57-1.11); EST GLOMERULAR FILTRATION RATE > 60 ML/MIN (60-); GLUCOSE 98 mg/dL (74-118); POTASSIUM 3.4 mmol/L (3.5-5.1); SODIUM 137 mmol/L (136-145)
[2019-03-18] MEDS ORDERED: MEROPENEM 1GRAM 1 GM in SODIUM CHLORIDE 0.9% 100 ML 100 ML IV SCH (06:00)
[2019-03-18] MEDS: MEROPENEM 1GM 100 ML IV SCH ×3 (06:00→21:27)
[2019-03-18] MEDS: SODIUM CHLORIDE 0.9% 1000ML 1,000 ML IV SCH ×3 (06:13→22:13)
--- NOTE | 2019-03-18 07:00 | NUR ---
Patient resting comfortably. Walking rounds done. Report given to oncoming nurse.
--- NOTE | 2019-03-18 07:30 | NUR ---
Received patient AAOx3, patient on room air, no s/s of distress. at bedside. Fluids running at 125 ml/hr. IV is intact, clean, and dry. Side rails up x2, bed in lowest position, and call cárdenas is within reach.
[2019-03-18] MEDS ORDERED: DIPHENHYDRAMINE HCL 25 MG CAP PO PRN (08:00)
--- NOTE | 2019-03-18 09:40 | NUR ---
Patient went down for xray of the abdomen.
--- NOTE | 2019-03-18 10:10 | NUR ---
Patient returned from abdominal x-ray.
--- NOTE | 2019-03-18 10:45 | Diagnostic Imaging Report ---
Exam: Abdominal film Clinical History: Stent Comparison: None. DISCUSSION: Right internal ureteral stent is noted with the proximal locking loop projecting over the right renal pelvis. The distal locking loop projects over the urinary bladder to the right of midline. No calcifications are identified projecting along the course of the stent. Bowel gas pattern is nonobstructive. Right upper quadrant surgical clips likely related to prior cholecystectomy. Regional skeletal structures are intact. IMPRESSION: Appropriately positioned right internal ureteral stent without plain film evidence of urolithiasis. Signed by: Dr. Ayush Garcia M.D. on 03/18/2019 10:42 AM
--- NOTE | 2019-03-18 11:45 | NUR ---
Re-checked blood pressure due to it being 99/61. Second time BP is 102/68 and heart rate of 75. Will con't to monitor patient's blood pressure.
[2019-03-18] MEDS ORDERED: SODIUM CHLORIDE 0.9% 1000ML 1,000 ML ONE (15:29)
--- NOTE | 2019-03-18 15:30 | NUR ---
Patient requested pain medication IV. Checked BP. BP was 110/66 and HR of 64. Will con't to monitor patient BP.
[2019-03-18] MEDS: TEMAZEPAM 15 MG CAP PO PRN (21:07)
[2019-03-19] VITALS (7 sets, daily range): BP systolic 98–119; BP diastolic 54–76
[2019-03-19] MEDS: HYDROMORPHONE 2MG/ML 2 MG/ML ML IV PRN ×8 (01:00→22:28)
[2019-03-19] MEDS: MEROPENEM 1GM 100 ML IV SCH ×3 (05:40→21:49)
[2019-03-19] MEDS: SODIUM CHLORIDE 0.9% 1000ML 1,000 ML IV SCH ×2 (06:13→14:13)
--- NOTE | 2019-03-19 07:30 | NUR ---
Received patient AAOx3, at bedside, patient on room air, no s/s of distress, IV to right hand 20 gauge dry and intact, and fluids running. Side rails up x2, call cárdenas within reach, and bed in lowest position.
--- NOTE | 2019-03-19 12:10 | NUR ---
Patient has vomiting episode. Administered zofran PO. Will con't to monitor.
[2019-03-19] MEDS: ONDANSETRON HCL 4 MG ORAL DISINTEGRATING TAB PO PRN ×3 (12:16→22:29)
[2019-03-19] MEDS: ACETAMINOPHEN 325 MG TAB PO PRN (16:59)
--- NOTE | 2019-03-19 18:16 | NUR ---
Patient is laying in bed with moderate pain to head and right flank. No s/s of distress. at bedside Side rails up x2, bed in lowest position, and call cárdenas within reach.
--- NOTE | 2019-03-19 18:51 | NUR ---
paged dr. reyes regarding patient vomiting twice. waiting for call back.
--- NOTE | 2019-03-19 20:00 | NUR ---
Received change of shift report from AM nurse. Walking rounds completed.
[2019-03-19] MEDS: PROMETHAZINE 25MG/ NS 50ML (IV) IV PRN (21:00)
--- NOTE | 2019-03-19 22:00 | NUR ---
Patient continue to c/o nausea and vomiting. Paged MD for new orders. Received orders and meds given as ordered. Continue monitor.
[2019-03-19] MEDS: TEMAZEPAM 15 MG CAP PO PRN (23:42)
[2019-03-20] VITALS (9 sets, daily range): BP systolic 96–106; BP diastolic 59–70
--- NOTE | 2019-03-20 00:24 | NUR ---
Patient requested pain med every 2 hours for abdominal pain. Meds given as ordered by .
[2019-03-20] MEDS: HYDROMORPHONE 2MG/ML 2 MG/ML ML IV PRN ×9 (00:32→22:17)
[2019-03-20] MEDS: PROMETHAZINE 25MG/ NS 50ML (IV) IV PRN ×2 (03:14→11:37)
--- NOTE | 2019-03-20 03:36 | NUR ---
Patient c/o vaginal area rawness. Cream given and will f/u with .
[2019-03-20] MEDS: SODIUM CHLORIDE 0.9% 1000ML 1,000 ML IV SCH ×4 (04:00→22:57)
[2019-03-20] MEDS: MEROPENEM 1GM 100 ML IV SCH ×3 (05:41→21:54)
--- NOTE | 2019-03-20 06:31 | NUR ---
Patient resting quitly at this time. Requested pain meds.
[2019-03-20] MEDS: FLUCONAZOLE 200 MG/100 ML 100 ML IV SCH (15:45)
[2019-03-20] MEDS: ACETAMINOPHEN/CODEINE 300MG - 30MG TAB PO PRN (16:25)
--- NOTE | 2019-03-20 20:50 | NUR ---
Report called to med/surg 1 for room 110. Patient A&Ox3, stable and no issues or concerns at this time.
--- NOTE | 2019-03-20 20:55 | NUR ---
Report received from rebecca rodriguez.
--- NOTE | 2019-03-20 21:05 | NUR ---
Received the pt from room # 201 to room #110.
--- NOTE | 2019-03-20 21:07 | NUR ---
Patient in room 110. Remains A&Ox3. Visitor at bedside. All personal belonging with patient. No issue or concerns, call light within reach. Nurse notified that patient arrived.
--- NOTE | 2019-03-20 22:35 | NUR ---
Assessment done.no resp.distress.R.flank pain voice.medicated with dilaudid.family member at bed side.oriented to the unit.phone and call light within reach.instructed to call for assistance as needed.
[2019-03-20] MEDS: TEMAZEPAM 15 MG CAP PO PRN (23:02)
[2019-03-21] VITALS (7 sets, daily range): BP systolic 97–106; BP diastolic 54–65
[2019-03-21] MEDS: PROMETHAZINE 25MG/ NS 50ML (IV) IV PRN (01:07)
[2019-03-21] MEDS: HYDROMORPHONE 2MG/ML 2 MG/ML ML IV PRN ×10 (01:11→22:34)
--- NOTE | 2019-03-21 01:20 | NUR ---
Nauseated.Medicated with [id number] mg iv.
--- NOTE | 2019-03-21 02:04 | NUR ---
Resting well in the bed.stable condition.
[2019-03-21] MEDS: MEROPENEM 1GM 100 ML IV SCH ×3 (05:28→22:34)
[2019-03-21] MEDS: SODIUM CHLORIDE 0.9% 1000ML 1,000 ML IV SCH ×3 (05:38→22:34)
[2019-03-21 06:09] LABS: BASOPHILS # (AUTO) 0.1 (0.0-0.1); BASOPHILS % 0.6 % (0.0-1.0); EOSINOPHILS # (AUTO) 0.4 (0.0-0.4); HEMATOCRIT 38.8 % (34.2-44.1); HEMOGLOBIN 12.9 g/dL (12.0-16.0); LYMPHOCYTES % 33.6 % (18.0-39.1); MEAN CORPUSCULAR HEMOGLOBIN 30.7 pg (28-32); MEAN CORPUSCULAR HGB CONC 33.2 g/dL (31-35); MEAN CORPUSCULAR VOLUME 92.4 fL (81-99); MONOCYTES # (AUTO) 0.5 (0.2-0.8); MONOCYTES % 5.8 % (4.4-11.3); NEUTROPHILS % 55.7 % (38.7-80.0); PLATELET COUNT 185 x10e3/uL (140-360); RED CELL DISTRIBUTION WIDTH 12.1 % (11.7-14.4)
[2019-03-21 06:28] LABS: ANION GAP 9.7 mmol/L (8-16); BLOOD UREA NITROGEN 9 mg/dL (7-26); BUN/CREATININE RATIO 13 (6-25); CALCIUM 8.6 mg/dL (8.4-10.2); CARBON DIOXIDE 24 mmol/L (22-29); CHLORIDE 111 mmol/L (98-107); EST GLOMERULAR FILTRATION RATE > 60 ML/MIN (60-); GLUCOSE 95 mg/dL (74-118); POTASSIUM 3.7 mmol/L (3.5-5.1); SODIUM 141 mmol/L (136-145)
--- NOTE | 2019-03-21 06:50 | NUR ---
Report given to the on coming rn.walking rounds done.stable condition.
--- NOTE | 2019-03-21 11:11 | Progress Note ---
DATE: 03/21/2019 SUBJECTIVE: Ms. Dasilva is a 34-year-old female with history of insomnia and history of kidney stones, who had a stent placed a one week prior to come to the emergency room after having the stent placed because he had a right-sided kidney stone. The patient started feeling bad, having fever, vomiting, and dysuria, so she decided to come to the emergency room. She was admitted on and started on IV antibiotics. Yesterday, urine cultures showed yeast, so she was started on Diflucan. The plan is to continue the Diflucan, antibiotics and the patient is going to have her stent removed sometime in one or two days. PHYSICAL EXAMINATION: GENERAL: Today, she is awake and alert. VITAL SIGNS: Temperature is 98.5 and blood pressure is 99/60. HEART: Regular rate. LUNGS: Clear to auscultation. ABDOMEN: Soft. EXTREMITIES: Lower extremity, no edema, no erythema. LABORATORY DATA: On the blood work, potassium 3.7, creatinine is 0.70, glucose is 95. White count 8.98, hemoglobin 12.9, and hematocrit 38.8. The urine culture is showing yeast species. Blood culture is negative. ADMITTING DIAGNOSIS: 1. Urinary tract infection with yeast infection. 2. History of right nephrolithiasis, status post stent placement. 3. Leukocytosis, resolved. 4. Insomnia. PLAN: At the present time is to continue on Diflucan. Continue IV meropenem. Continue hydration. The patient is going to go for a stent removal once the infection is under control. All this was discussed with the patient and with . MD FANNY Aviles/RAFAL /[id number]
[2019-03-21] MEDS: FLUCONAZOLE 200 MG/100 ML 100 ML IV SCH (15:13)
--- NOTE | 2019-03-21 19:30 | NUR ---
pt received. pt assessed. no ss of distress noted. pt co constant pain to abd. discussed pain mngt poc. verbalized understanding. will medicate for pain per orders. will cont to follow poc. call cárdenas within reach.
[2019-03-22] VITALS (7 sets, daily range): BP systolic 91–116; BP diastolic 52–70
[2019-03-22] MEDS: HYDROMORPHONE 2MG/ML 2 MG/ML ML IV PRN ×7 (00:40→23:39)
[2019-03-22] MEDS: TEMAZEPAM 15 MG CAP PO PRN ×2 (01:15→21:21)
[2019-03-22] MEDS: MEROPENEM 1GM 100 ML IV SCH ×3 (06:17→21:29)
[2019-03-22] MEDS: SODIUM CHLORIDE 0.9% 1000ML 1,000 ML IV SCH ×3 (06:17→22:13)
--- NOTE | 2019-03-22 06:52 | NUR ---
pt resting. no ss of distress noted. call cárdenas within reach.
--- NOTE | 2019-03-22 07:03 | NUR ---
pt alert resp even and unlabored at this time no distress noted at this time, pt able to make needs known family members at bedside.
[2019-03-22] MEDS: ACETAMINOPHEN/CODEINE 300MG - 30MG TAB PO PRN (10:03)
--- NOTE | 2019-03-22 10:45 | NUR ---
pt up to take shower at this time.
--- NOTE | 2019-03-22 11:33 | Consultation ---
DATE OF CONSULTATION: 03/18/2019 Urology Consultation CHIEF COMPLAINT AND REASON FOR CONSULTATION: Fevers and stent. HISTORY OF PRESENT ILLNESS: Ms. Dasilva is a 34-year-old female admitted to the hospital with fever of 102 degrees, unrelenting colic, failed outpatient pain management. Per patient's report, had a fever to 102 degrees at home, acute sharp, 10/10, right severe flank pain, unrelenting with oral medication and oral narcotics. PAST MEDICAL HISTORY: As above. MEDICATIONS: Please see MAR. ALLERGIES: SULFA. SOCIAL HISTORY: Denied smoking or drinking. FAMILY HISTORY: Denied urologic stones or malignancies. REVIEW OF SYSTEMS: Noncontributory other than problems mentioned above for 12 organ systems. PHYSICAL EXAMINATION: GENERAL: Middle-aged female, in no acute distress. VITAL SIGNS: Currently temperature 97.1, pulse 69, respirations 17, and blood pressure 120/60. EYES: Sclerae anicteric. NECK: Supple. BACK: Without costovertebral angle tenderness bilaterally. ABDOMEN: Soft. It is nontender. It is nondistended. No palpable mass. No palpable hernias. No palpable adenopathy. : Normal external genitalia. EXTREMITIES: No edema. NEURO: Moves all four extremities. PSYCH: Alert and appropriate. SKIN: Intact, normal color. PERTINENT LABORATORY DATA: Imaging revealed stent in adequate position. Hemoglobin 13, hematocrit 40, platelet count 204,000, and white cell count 8490. Sodium 137, potassium 3.4, chloride 108, bicarb 23, BUN 14, creatinine 0.76, and glucose 98. Urinalysis; 5 to 10 whites and 21 to 50 reds. IMPRESSION: 1. Indwelling ureteral stent. 2. Hydronephrosis. 3. Urinary tract infection/pyelonephritis. 4. Uncontrolled renal colic, failed outpatient trial of pain management. 5. Microscopic hematuria. PLAN: 1. We will provide pain control per the primary service. 2. We will obtain urine culture. Begin with empiric antibiotics. We will adjust to culture specific antibiotic as data is available. The patient needs to have urine sterilized prior to the stent removal . Thank you for allowing me to participate in the care of your patient. We will be happy to follow along with you. MD JIM Merlos/JOSUE /[id number]
--- NOTE | 2019-03-22 12:08 | Discharge Summary ---
HOSPITAL COURSE: Ms. Dasilva is a 34-year-old female with history of insomnia, history of kidney stones, had a stent placed a week prior to admission. After having the stent placed, the patient started having fever, vomiting, and urinary frequency. She came to the emergency room, she was admitted, started on IV antibiotics. Urine culture showed yeast and she was started on Diflucan. The plan as for today if insurance is approved is to remove the stent and may be if it is okay with Urology to discharge her home. PHYSICAL EXAMINATION: GENERAL: Today, she is awake and alert. VITAL SIGNS: Temperature is 97.9 and blood pressure 115/69. HEART: Regular rate. LUNGS: Clear to auscultation. ABDOMEN: Soft. Mild tenderness on the right flank. EXTREMITIES: Lower extremity, no edema. LAB WORK: Potassium 3.7, creatinine is 0.70, glucose is 95. White count is 8.98, hemoglobin 12.9, hematocrit 38.8. Urine culture is showing yeast species. Blood culture so far is negative. DISCHARGE DIAGNOSES: 1. Urinary tract infection with yeast infection. 2. Right nephrolithiasis, status post stent placement and infection. 3. Leukocytosis, resolved. 4. Insomnia. PLAN: At the present time, this patient was started on Diflucan. She is on IV fluids. The plan was to remove the stent today. If the patient is stable and if it is okay with Urology, discharge her home and follow up as an outpatient. All this was discussed with the patient at bedside. All questions were answered to satisfaction. Please see home medication reconciliation list. MD FANNY Aviles/JOSUE /[id number]
[2019-03-22] MEDS: FLUCONAZOLE 200 MG/100 ML 100 ML IV SCH (15:54)
--- NOTE | 2019-03-22 19:13 | NUR ---
pt c/o abdomen pain, and used the rest room and had blood in stool, bright red but minimal, pt stated she was constipated and had to push really hard to have the stool, call to Dr. Brenner for orders.
--- NOTE | 2019-03-22 19:45 | NUR ---
BEDSIDE SHIFT REPORT PERFORMED, RECEIVED PT LAYING SEMI FOWLERS IN BED, AAOX3, RR EVEN AND NON-LABORED, ON RA. PT REPORTS LOWER POSTERIOR BACK HURTING HER IN THE FLANK AREA. LEFT PT LAYING SEMI FOWLERS IN BED, BED IN LOW LOCKED POSITION, SIDE RAILS UPX2, CALL LIGHT AND PHONE WITHIN REACH.
--- NOTE | 2019-03-22 20:03 | NUR ---
REPORT GIVEN TO ONCOMING NURSE, FOR CONTINUED CARE.
[2019-03-22] MEDS ORDERED: LACTULOSE SYRUP 20 GM/30 ML UDC PO PRN (21:00)
[2019-03-22] MEDS ORDERED: DOCUSATE SODIUM 100 MG CAP PO NR (21:00)
[2019-03-22] MEDS ORDERED: LACTULOSE SYRUP 20 GM/30 ML UDC PO NR (21:00)
[2019-03-23] VITALS (7 sets, daily range): BP systolic 96–129; BP diastolic 68–76
[2019-03-23] MEDS: PROMETHAZINE 25MG/ NS 50ML (IV) IV PRN (01:44)
[2019-03-23] MEDS: HYDROMORPHONE 2MG/ML 2 MG/ML ML IV PRN ×8 (01:44→22:46)
[2019-03-23] MEDS: SODIUM CHLORIDE 0.9% 1000ML 1,000 ML IV SCH ×3 (02:50→20:21)
[2019-03-23] MEDS: MEROPENEM 1GM 100 ML IV SCH ×3 (06:36→21:37)
--- NOTE | 2019-03-23 07:16 | NUR ---
pt alert resp even and unlabored at this time no distress noted at this time, pt able to make needs known family members at bedside. call light in reach, will cont to monitor.
[2019-03-23] MEDS: DOCUSATE SODIUM 100 MG CAP PO SCH ×2 (08:57→18:20)
--- NOTE | 2019-03-23 10:18 | Progress Note ---
DATE: 03/23/2019 SUBJECTIVE: Ms. Dasilva is a 34-year-old female with history of insomnia, came to the emergency room with fever, vomiting, urinary frequency, leukocytosis after having a stent placed a week prior to admission, started on IV antibiotics and IV Dilaudid. She has been seen by Urology. Insurance is not approving the removal of the stent. We are awaiting for approval. PHYSICAL EXAMINATION: GENERAL: Today, she is awake and alert. VITAL SIGNS: Temperature 97.3, blood pressure is 111/74. HEART: Regular rate. LUNGS: Clear to auscultation. ABDOMEN: Soft. LABORATORY DATA: On the blood work, potassium 3.7, creatinine 0.70, glucose is 95. White count is 8.98, hemoglobin is 12.9, hematocrit 38.8. DIAGNOSES: 1. Urinary tract infection with yeast infection. 2. Right nephrolithiasis, status post stent placement with infection. 3. Leukocytosis, resolving. 4. Insomnia. PLAN: At present time is to continue IV Dilaudid and Diflucan. We are awaiting for insurance approval to have the stent removed. All this was discussed with urologist and case work aide as well as the patient. All questions were answered to satisfaction. MD FANNY Aviles/JOSUE /[id number]
[2019-03-23] MEDS: FLUCONAZOLE 200 MG/100 ML 100 ML IV SCH (15:30)
--- NOTE | 2019-03-23 18:25 | NUR ---
Nutrition LOS Note RD Recommendation(s) for Physician / Nutrition Prescription: continue with diet as prescribed Plan of Care:Patient has been screened and assessed for nutrition risk. At this time, the patient does not pose any nutrition risk. No further nutrition intervention is warranted at this time. Will re-evaluate if consulted by medical staff. Nutrition reason for involvement: LOS Primary Dx: UTI w/ yeast infection, R nephrolithiasis PMH: insomnia RD Assessment: (03/23) 34yo F, who was admitted for acute nephrolithiasis. Pending surgery for stent removal. Visited pt in the room. Pt reported fair appetite with 75-100% recorded meal intake. No complains of nausea or vomiting. Pt denied any chewing or swallowing difficulty. Stable weight. Current diet is appropriate and adequate. Please consult as needed. Malnutrition Evaluation (03/23/2019) The patient does not meet criteria for a specified degree of malnutrition at this time. Will re-evaluate at follow-up as appropriate. Nutrition Care Level: Low Signed by Lucy Lechuga, MS, RD, LD
--- NOTE | 2019-03-23 19:10 | NUR ---
Received patient awake, with ongoing IV fluids, not in distress, complaints of pain to to her back, and right flank, will recheck vital signs. Call light within easy reach, advise to call for assistance anytime when needed. Will continue to monitor
--- NOTE | 2019-03-23 19:18 | NUR ---
report given to oncoming nurse, for continued care.
[2019-03-24] VITALS (9 sets, daily range): BP systolic 103–136; BP diastolic 69–81
[2019-03-24] MEDS: SODIUM CHLORIDE 0.9% 1000ML 1,000 ML IV SCH ×4 (00:51→22:13)
[2019-03-24] MEDS: HYDROMORPHONE 2MG/ML 2 MG/ML ML IV PRN ×11 (01:21→22:49)
[2019-03-24] MEDS: MEROPENEM 1GM 100 ML IV SCH ×3 (05:35→21:29)
[2019-03-24] MEDS ORDERED: IOPAMIDOL 610MG/1ML 300 MG/ML VIAL IV ONE (06:19)
--- NOTE | 2019-03-24 07:20 | NUR ---
RECEIVED PATIENT AWAKE RESTING IN BED NO SIGNS OF DISTRESS. BED LOW, WHEELS LOCKED, SIDE RAILS X2. CALL LIGHT IN REACH WILL CONTINUE TO MONITOR.
[2019-03-24] MEDS: DOCUSATE SODIUM 100 MG CAP PO SCH ×2 (08:05→16:55)
--- NOTE | 2019-03-24 09:33 | Progress Note ---
DATE: 03/24/2019 SUBJECTIVE: Ms. Dasilva is a 34-year-old female with history of insomnia, came to the emergency room one week after having a stent placed on the right kidney due to kidney stone, complaining of fever, vomiting, urinary frequency. She was found to have elevated white count and fever, started on IV Dilaudid and antibiotics. Seen by Urology. She is going to have her stent remove tomorrow and if stable, she is going to go home. PHYSICAL EXAMINATION: GENERAL: Today, she is awake and alert. VITAL SIGNS: Temperature is 97.5, blood pressure 106/69. HEART: Regular rate. LUNGS: Clear to auscultation. ABDOMEN: Soft with mild tenderness on the right flank area. EXTREMITIES: Lower extremity, no edema. No erythema. LABORATORY DATA: On the blood work, potassium 3.7, creatinine 0.73, glucose 95. White count 8.9, hemoglobin 12.9, hematocrit 38.8. She had an abdominal x-ray done that shows right internal ureteral stent in place without plain film evidence of urolithiasis. LABORATORY DATA: Urine culture positive for yeast. DIAGNOSES: 1. Urinary tract infection with yeast. 2. Right nephrolithiasis, status post stent placement and infection. 3. Leukocytosis, resolved. 4. Insomnia. PLAN: At the present time, the patient continued on IV Dilaudid and Diflucan. She is going to have the stent removed tomorrow and if stable after the procedure, she is going to be able to go home and followup as an outpatient. All this was discussed with the patient and with the urologist at bedside. All questions were answered to satisfaction. MD FANNY Aviles/JOSUE /[id number]
--- NOTE | 2019-03-24 09:36 | NUR ---
PATIENT A/O X3, EVEN RESPIRATIONS ON RA. BOWEL SOUNDS ACTIVE, SKIN INTACT, NO EDEMA. RIGHT HAND 20 GAUGE IV INTACT AND PATENT. IVF @ 125 CC/HR. PATIENT AMBULATES AND VOIDS IN TOILET. DILAUDID Q2 PRN FOR FLANK PAIN. VITAL SIGNS STABLE. CALL LIGHT IN REACH. EDUCATED PATIENT TO CALL FOR ASSISTANCE. WILL CONTINUE TO MONITOR PATIENT.
[2019-03-24] MEDS: FLUCONAZOLE 200 MG/100 ML 100 ML IV SCH (14:22)
--- NOTE | 2019-03-24 17:55 | NUR ---
CONSENT FORM SIGNED FOR PROCEDURE TOMORROW.
--- NOTE | 2019-03-24 19:08 | NUR ---
RECEIVED PATIENT AAOX4, RESTING IN BED. FAMILY MEMBER AT BEDSIDE. NO NEEDS VOICED AT THIS TIME. BED LOCKED AND IN LOWEST POSITION, CALL LIGHT WITHIN EASY REACH.
[2019-03-24] MEDS: TEMAZEPAM 15 MG CAP PO PRN (22:44)
[2019-03-25] MEDS: HYDROMORPHONE 2MG/ML 2 MG/ML ML IV PRN ×5 (00:51→09:32)
[2019-03-25] MEDS: PROMETHAZINE 25MG/ NS 50ML (IV) IV PRN (00:51)
[2019-03-25 04:20] VITALS: BP 103/69
--- NOTE | 2019-03-25 05:48 | NUR ---
OR NURSE NOTIFIED THAT PATIENT CASE MOVED EARLIER TO 0700. PATIENT NOTIFIED, AND NOW IN SHOWER. LINENS CHANGED. INSTRUCTED TO CALL FOR ASSISTANCE NEEDED.
[2019-03-25] MEDS: MEROPENEM 1GM 100 ML IV SCH (06:23)
--- NOTE | 2019-03-25 07:17 | NUR ---
Report received from Neema MASTERSON. Patient taken for procedure. No s/s of acute distress noted.
[2019-03-25] MEDS ORDERED: IOPAMIDOL 610MG/1ML 300 MG/ML VIAL IV ONE (07:34)
--- NOTE | 2019-03-25 08:27 | NUR ---
Received patient back from procedure. AAOX4 to time, person, place, situation. Respiration even and unlabored. Due to void. Instructed to use call light for assistance. Will continue to monitor.
--- NOTE | 2019-03-25 09:22 | NUR ---
Per "okay to discharge. Follow up 2-3 weeks"
[2019-03-25 09:32] VITALS: BP 113/82
[2019-03-25] MEDS: DOCUSATE SODIUM 100 MG CAP PO SCH (09:32)
--- NOTE | 2019-03-25 09:50 | NUR ---
Patient void without discomfort
--- NOTE | 2019-03-25 09:55 | NUR ---
aware of 's message. See orders Addendum: 03/25/19 at 1024 by CHARLOTTE OLIVIER RN per no rx at this time
--- NOTE | 2019-03-25 10:31 | NUR ---
Right FA IV discontinued. No signs of infiltration noted. 2x2 gauze and tape placed. Taken via wheelchair to personal car by PCT. AAOX4 to time, person,place, situation. Respirations even and unlabored. Discharge instructions and all personal belongings taken with patient. No rx available at this time. Accompanied by .
[2019-03-25] MEDS ORDERED: DESFLURANE 240 ML BTL INH ONE (14:26)
[2019-03-25] MEDS ORDERED: PROPOFOL IV EMULSION 10 MG/ML 20 ML VIAL ONE (14:26)
[2019-03-25] MEDS ORDERED: LIDOCAINE HCL 2% LOCAL INJ 5 ML SDV VIAL INJ ONE (14:26)
[2019-03-25] MEDS ORDERED: DEXAMETHASONE SOD PHOS INJ 4 MG/ML VIAL ONE (14:26)
[2019-03-25] MEDS ORDERED: LIDOCAINE HCL 2% JELLY 5 ML TUBE ONE (14:26)
[2019-03-25] MEDS ORDERED: ONDANSETRON HCL INJ 2MG/ML 2ML 2 MG/ML VIAL ONE (14:26)
[2019-03-25] MEDS ORDERED: FENTANYL CITRATE/PF 100MCG/2 ML INJ ONE (14:45)
[2019-03-25] MEDS ORDERED: MIDAZOLAM HCL 2 MG/2 ML VIAL ONE (14:45)
--- NOTE | 2019-03-26 05:05 | Discharge Summary ---
HOSPITAL COURSE: Ms. Dasilva is a 34-year-old female, who has history of insomnia, had a right kidney stone and a stent placed one week prior to admission, came to the emergency room complaining of vomiting and fever. She was found to have elevated white count. She was started on IV antibiotics and pain medication. She was found to have yeast infection. She is going for a stent removal today and if stable, she is going to be discharged home. PHYSICAL EXAMINATION: GENERAL: She is awake and alert. VITAL SIGNS: Temperature is 96.6 and blood pressure 103/69. HEART: Regular rate. LUNGS: Clear to auscultation. ABDOMEN: Soft. LABORATORY DATA: On the blood work; potassium 3.7, creatinine is 0.70, glucose 95. White count 8.98. ASSESSMENT: 1. Urinary tract infection with yeast. 2. Right nephrolithiasis, status post stent. 3. Insomnia. 4. Leukocytosis, resolved. PLAN: At the present time is, after the patient has the stent removed today if she is stable, she is going to be able to go home. All this was discussed with the urologist and patient. All questions were answered to satisfaction. Please see home medication reconciliation list. MD FANNY Aviles/JOSUE /[id number]
--- NOTE | 2019-03-26 20:08 | Operative Report ---
DATE OF PROCEDURE: 03/25/2019 SURGEON: Haile Montaño MD PREOPERATIVE DIAGNOSES: 1. Indwelling ureteral stent. 2. Right-sided hydronephrosis. POSTOPERATIVE DIAGNOSES: 1. Indwelling ureteral stent. 2. Right-sided hydronephrosis. PROCEDURES: 1. Cystourethroscopy with removal of a right indwelling ureteral stent (entirely separate procedure for the diagnosis of hydronephrosis). 2. Cystourethroscopy with removal of a right indwelling stent (entirely separate procedure for the diagnosis of right ureteral stent). 3. Supervision of fluoroscopy for ureteroscopy portion as well as stent removal portion. 4. Interpretation of retrograde pyelography. ANESTHESIA: General. ESTIMATED BLOOD LOSS: Minimal. COMPLICATIONS: None. INDICATIONS FOR PROCEDURE: Ms. Dasilva is a very pleasant 34-year-old female with a history of hydronephrosis and a stent placement. She and I had a long discussion about alternatives, risks, and benefits including doing nothing, stent removal, ureteroscopy, percutaneous surgery, or open surgery. She voiced understanding of the options, alternatives, risks, and benefits and she would like to proceed. PROCEDURE IN DETAIL: After informed consent was obtained, the patient was taken to the operative suite, placed supine on the operating table. She underwent general anesthesia by the Anesthesia Service. She was placed in the lithotomy position and sterilely prepped and draped in standard fashion for cystoscopy. A 21-Monegasque cystoscope was inserted per urethra and normal urethra was noted. Panendoscopy of the bladder revealed no tumors or stones. Stent was seen extruding through the right ureteral orifice was grasped and was removed intact. A guidewire was inserted. A second safety wire was introduced. Flexible ureteroscope was advanced to the level of renal pelvis. There were no strictures seen. There was no obstructing ureteral stone seen. The entire pelvicaliceal system was mapped utilizing contrast. There were some small Todd's plaques seen in the extreme lower pole of the right side. At this time, but no anatomic findings. The safety wire was removed. The bladder was drained. The patient was awakened from anesthesia and transported to the recovery room in excellent condition. Supervision of fluoroscopy and interpretation of retrograde pyelography: I was present for the entire procedure and supervised fluoroscopy. There was no radiologist present. Attention was turned towards the ureteral orifices, catheterized with ureteroscope. All calyces were mapped. Hydronephrosis resolved. Stent removed. MD JIM Merlos/JOSUE /[id number]
== END 2019-03-25 10:31 | disposition home or self-care (01) | DRG 698 ==
LOC: ER 19:09 → ERHOLD 22:27 → MED/SURG2 22:43 → MED/SURG 03-20 21:08
PROVIDERS: ADMIT Internal Medicine; ATTEND Internal Medicine
PROC: 0TP98DZ Removal of Intraluminal Device from Ureter, Via Natural or Artificial Opening Endoscopic (ICD-10-PCS; principal; 2019-03-17)
PROC: BT1D1ZZ Fluoroscopy of Right Kidney, Ureter and Bladder using Low Osmolar Contrast (ICD-10-PCS; 2019-03-17)
DX: T83.593A Infection and inflammatory reaction due to other urinary stents, initial encounter (principal); A41.9 Sepsis, unspecified organism; B37.49 Other urogenital candidiasis; N13.6 Pyonephrosis; Z87.442 Personal history of urinary calculi; N20.0 Calculus of kidney; G47.00 Insomnia, unspecified; R31.29 Other microscopic hematuria
CPT/HCPCS: 36415; 74018; 74420; 80048; 81001; 85025; 87040; 87086; 96366; 96367; 96374; 96375; 96376; 99284; C1766; J1100; J1450; J1885; J2001; J2185; J2250; J2405; J2550; J7030